=== PATIENT | female | born 1980 | race African-American/Black ===

== ENCOUNTER 2018-11-14 02:21 | Emergency (ER) | payer BC ==
[~2018-11-14] VITALS: Ht 167.6 cm; Wt 90.7 kg
== END 2018-11-14 02:39 | disposition home or self-care (01) ==
LOC: ER 02:21
DX: M25.511 Pain in right shoulder (principal); M75.51 Bursitis of right shoulder; F17.210 Nicotine dependence, cigarettes, uncomplicated
CPT/HCPCS: 99282